=== PATIENT | male | born 1950 | race African-American/Black ===

== ENCOUNTER 2023-10-09 15:16 | Emergency (ER) | payer MEDICAID ==
[~2023-10-09] VITALS: Ht 170.2 cm; Wt 75.0 kg
[2023-10-09 15:21] VITALS: BP 110/57; TEMP 98.4; O2SAT 95
[2023-10-09] MEDS ORDERED: IPRATROPIUM/ALBUTEROL 0.5-3(2.5)MG/3ML NEB HHN ONE (16:00)
[2023-10-09] MEDS: DEXAMETHASONE 10 MG/ML VIAL IM ONE (16:54)
[2023-10-09 17:05] LABS: CHLORIDE 101 mEq/L (98-107); SODIUM 139 mEq/L (136-145)
[2023-10-09 17:06] LABS: CALCIUM 8.9 mg/dL (8.7-10.4); CARBON DIOXIDE 37 mEq/L (21-32)
[2023-10-09 17:11] LABS: CREATININE 1.4 mg/dL (0.6-1.3); GLUCOSE 71 mg/dL (70-105); INR 0.9; PARTIAL THROMBOPLASTIN TIME 24.2 sec (23.4-31.0); PROTHROMBIN TIME 10.5 sec (9.6-11.0); UREA NITROGEN BLOOD 32 mg/dL (9-23)
[2023-10-09 17:15] LABS: BASOPHILS % 0.2 % (0.0-2.0); EOSINOPHILS % 2.4 % (0.0-5.0); HEMATOCRIT. 37.4 % (42.0-52.0); LYMPHOCYTES % 8.7 % (20.0-50.0); MEAN CORPUSCULAR HEMOGLOBIN 30.6 pg (28.0-32.0); MEAN CORPUSCULAR VOLUME 95.7 fL (80.0-94.0); MONOCYTES % 12.8 % (2.0-8.0); NEUTROPHILS % 75.9 % (40.0-76.0); PLATELET 171 x1000/uL (130-400); RED BLOOD CELL COUNT 3.91 mill/uL (4.7-6.1); RED CELL DISTRIBUTION WIDTH 17.6 % (11.6-14.6); TROPONIN I HIGH SENSITIVITY 725 ng/L (3.0-53); WHITE BLOOD COUNT 7.6 x1000/uL (4.5-11.0)
[2023-10-09 17:45] VITALS: PULSE 88; RESP 18
[2023-10-09] MEDS: IPRATROPIUM/ALBUTEROL 0.5-3(2.5)MG/3ML NEB HHN NR (17:45)
[2023-10-09] MEDS ORDERED: ALBU6.7H15 INH (18:21)
[2023-10-12] MEDS ORDERED: IPRATROPIUM BROMIDE (0.02%) 0.5MG/2.5ML NEB HHN NR (08:58)
[2023-10-12] MEDS ORDERED: PREDNISONE 20MG TABLET PO NR (08:58)
[2023-10-12] MEDS ORDERED: ALBUTEROL (0.083%) 2.5MG/3ML NEB HHN STA (08:58)
[2023-10-12] MEDS ORDERED: FUROSEMIDE 40MG/4ML VIAL IV NR (09:00)
[2023-10-12] MEDS ORDERED: ASPI-1160 PO (14:06)
[2023-10-12] MEDS ORDERED: FURO20TA4 PO (14:06)
[2023-10-12] MEDS ORDERED: LISI-186 PO (14:06)
[2023-10-12] MEDS ORDERED: NIFE-33 PO (14:06)
[2023-10-12] MEDS ORDERED: ISOS10TA2 PO (14:06)
[2023-10-12] MEDS ORDERED: ATOR40TA70 PO (14:06)
[2023-10-12] MEDS ORDERED: CARV6.2548 PO (14:06)
[2023-10-12] MEDS ORDERED: P20 PO (14:06)
[2023-10-12] MEDS ORDERED: NICO-789 TP (14:06)
== END 2023-10-09 18:55 | disposition left against medical advice (07) ==
LOC: ER 15:16
DX: R06.02 Shortness of breath (principal); I10 Essential (primary) hypertension
CPT/HCPCS: 80048; 83880; 85025; 85610; 85730; 84484; 36415; 71045; 94640; 93005; 96372; 99291; J1100; Z7610 ×3

== ENCOUNTER 2024-02-07 14:54 | Inpatient (IN) | payer MEDICARE, MEDICAID ==
[~2024-02-07] VITALS: Ht 175.3 cm; Wt 72.6 kg
[~2024-02-07 14:54] MED LIST: ALBU6.7H15 INH; ASPI-1160 PO; ATOR40TA70 PO; CARV6.2548 PO; FURO20TA4 PO; ISOS10TA2 PO; LISI-186 PO; NICO-789 TP; NIFE-33 PO; P20 PO
[2024-02-07 15:41] LABS: BASOPHILS % 0.7 % (0.0-2.0); EOSINOPHILS % 1.3 % (0.0-5.0); HEMATOCRIT. 37.6 % (42.0-52.0); HEMOGLOBIN. 12.4 g/dL (14.0-18.0); LYMPHOCYTES % 12.4 % (20.0-50.0); MEAN CORPUSCULAR HEMOGLOBIN 31.4 pg (28.0-32.0); MEAN CORPUSCULAR HGB CONC 32.9 g/dL (31.0-37.0); MEAN CORPUSCULAR VOLUME 95.4 fL (80.0-94.0); MEAN PLATELET VOLUME 8.7 fl (7.4-10.4); MONOCYTES % 8.9 % (2.0-8.0); NEUTROPHILS % 76.7 % (40.0-76.0); PLATELET 262 x1000/uL (130-400); RED BLOOD CELL COUNT 3.94 mill/uL (4.7-6.1); WHITE BLOOD COUNT 6.2 x1000/uL (4.5-11.0)
[2024-02-07 15:48] LABS: CHLORIDE 100 mEq/L (98-107); POTASSIUM 4.2 mEq/L (3.5-5.1); SODIUM 143 mEq/L (136-145)
[2024-02-07 15:49] LABS: CARBON DIOXIDE 38 mEq/L (21-32)
[2024-02-07 15:54] LABS: CREATININE 1.7 mg/dL (0.6-1.3); GLUCOSE 89 mg/dL (70-105); UREA NITROGEN BLOOD 18 mg/dL (9-23)
[2024-02-07 16:03] LABS: TROPONIN I HIGH SENSITIVITY 139 ng/L (3.0-53)
[2024-02-07 16:39] VITALS: PULSE 91; RESP 20; O2SAT 100
[2024-02-07] MEDS: IPRATROPIUM BROMIDE (0.02%) 0.5MG/2.5ML NEB HHN STA (16:39)
[2024-02-07] MEDS: ALBUTEROL (0.083%) 2.5MG/3ML NEB HHN STA (16:39)
[2024-02-07] MEDS: FUROSEMIDE 40MG/4ML VIAL IVP NR (16:40)
[2024-02-07] MEDS: ASPIRIN 325MG EC TABLET PO NR (16:40)
[2024-02-07] MEDS: METHYLPREDNISOLONE SOD SUCC 125MG/2ML (ACT-O-VIAL) IV STA (16:40)
[2024-02-07] MEDS: LEVOFLOXACIN 750MG PREMIX 150 ML IV NR (18:10)
[2024-02-07 21:00] VITALS: BP 153/115; PULSE 92; RESP 18; TEMP 36.22512; TEMP 36.2512; O2SAT 99
[2024-02-07 21:18] LABS: TROPONIN I HIGH SENSITIVITY 108 ng/L (3.0-53)
[2024-02-07 23:00] VITALS: BP 149/97; PULSE 84; RESP 18; TEMP 36.16956; O2SAT 96
[2024-02-08 03:13] LABS: HEMATOCRIT. 36.7 % (42.0-52.0); HEMOGLOBIN. 11.9 g/dL (14.0-18.0); MEAN CORPUSCULAR HEMOGLOBIN 30.8 pg (28.0-32.0); MEAN CORPUSCULAR HGB CONC 32.3 g/dL (31.0-37.0); MEAN CORPUSCULAR VOLUME 95.5 fL (80.0-94.0); MEAN PLATELET VOLUME 8.9 fl (7.4-10.4); PLATELET 227 x1000/uL (130-400); RED BLOOD CELL COUNT 3.85 mill/uL (4.7-6.1); RED CELL DISTRIBUTION WIDTH 17.2 % (11.6-14.6); WHITE BLOOD COUNT 4.2 x1000/uL (4.5-11.0)
[2024-02-08 03:21] LABS: CHLORIDE 99 mEq/L (98-107); POTASSIUM 4.3 mEq/L (3.5-5.1); SODIUM 138 mEq/L (136-145)
[2024-02-08 03:22] LABS: CALCIUM 8.8 mg/dL (8.7-10.4); CARBON DIOXIDE 33 mEq/L (21-32)
[2024-02-08 03:27] LABS: CREATININE 1.8 mg/dL (0.6-1.3); GLUCOSE 112 mg/dL (70-105); UREA NITROGEN BLOOD 29 mg/dL (9-23)
[2024-02-08 03:29] LABS: ALANINE AMINOTRANSFERASE 24 IU/L (10-49); ALBUMIN 3.8 g/dL (3.2-4.8); ASPARTATE AMINOTRANSFERASE 26 IU/L (<34); BILIRUBIN TOTAL 0.5 mg/dL (0.1-1.0); PROTEIN TOTAL 6.2 g/dL (6.0-8.3)
[2024-02-08 03:58] LABS: DIFFERENTIAL COMMENT 1
[2024-02-08 04:00] VITALS: BP 147/94; PULSE 97; RESP 18; TEMP 35.72508; O2SAT 98
[2024-02-08 08:00] VITALS: BP 184/87; PULSE 92; RESP 18; TEMP 36.28068; O2SAT 96
[2024-02-08] MEDS: ASPIRIN 81MG TABLET PO SCH (08:58)
[2024-02-08] MEDS: CARVEDILOL 3.125 MG TABLET PO SCH (08:58)
[2024-02-08] MEDS: LOSARTAN 50 MG TABLET PO SCH (09:00)
[2024-02-08] MEDS: ENOXAPARIN 40MG/0.4ML SYR SUBCUT SCH (09:00)
[2024-02-08 10:21] LABS: PLATELET ESTIMATE NORMAL
[2024-02-08] MEDS ORDERED: GUAIFENESIN-DM 200MG-20MG/10ML UDC PO PRN (11:30)
[2024-02-08 12:00] VITALS: BP 143/107; PULSE 89; RESP 17; TEMP 36.28068; O2SAT 100
[2024-02-08] MEDS ORDERED: IPRATROPIUM/ALBUTEROL 0.5-3(2.5)MG/3ML NEB HHN SCH (12:00)
[2024-02-08] MEDS: FUROSEMIDE 40MG/4ML VIAL IVP SCH (12:41)
[2024-02-08] MEDS: METHYLPREDNISOLONE SOD SUCC 40MG/ML (ACT-O-VIAL) IV SCH (15:13)
[2024-02-08] MEDS ORDERED: LOSARTAN 50 MG TABLET PO SCH (21:00)
== END 2024-02-08 18:10 | disposition left against medical advice (07) | DRG 140 ==
LOC: ER 14:54 → 5WST 17:09 → EDBEDREQ 17:38 → EDBEDREQTM 17:38 → 7EST 02-08 16:00
PROVIDERS: ADMIT Internal Medicine; ATTEND Internal Medicine
DX: J44.1 Chronic obstructive pulmonary disease with (acute) exacerbation (principal); J96.01 Acute respiratory failure with hypoxia; I21.4 Non-ST elevation (NSTEMI) myocardial infarction; I50.23 Acute on chronic systolic (congestive) heart failure; I11.0 Hypertensive heart disease with heart failure; J45.901 Unspecified asthma with (acute) exacerbation; E78.5 Hyperlipidemia, unspecified; J96.02 Acute respiratory failure with hypercapnia; I16.0 Hypertensive urgency; Z53.29 Procedure and treatment not carried out because of patient's decision for other reasons; F17.210 Nicotine dependence, cigarettes, uncomplicated; I49.3 Ventricular premature depolarization; Z91.148 Patient's other noncompliance with medication regimen for other reason
CPT/HCPCS: 36415; 71045; 80048; 80053; 83036; 83880; 84484; 85025; 93005; 94640; 99285; J1650; J1940; J1956; J2919; J2920